=== PATIENT | female | born 1965 | race Caucasian/White ===

== ENCOUNTER 2017-03-14 19:11 | Emergency (ER) | payer OTHER ==
[2017-03-14] MEDS ORDERED: ADACEL TDaP IM ONE ×2 (19:21→19:22)
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
[2017-03-14 19:28] VITALS: BMI 34.4
[2017-03-14] MEDS ORDERED: ZOFRAN INJ 4 MG VIAL IVP ONE (19:40)
[2017-03-14] MEDS ORDERED: MORPHINE SULFATE INJ 4 MG IVP ONE (19:40)
[2017-03-14] MEDS ORDERED: ZOFRAN INJ 4 MG VIAL ONE (19:41)
[2017-03-14] MEDS ORDERED: MORPHINE SULFATE INJ 4 MG ONE (19:41)
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
[2017-03-14] MEDS ORDERED: FLEXERIL TAB 10 MG PO ONE (20:42)
[2017-03-14] MEDS ORDERED: NORCO 10/325 TAB PO ONE (20:42)
[2017-03-14] MEDS ORDERED: MOTRIN TAB 800 MG PO ONE ×2 (20:43→20:44)
[2017-03-14] MEDS ORDERED: FLEXERIL TAB 10 MG ONE (20:44)
[2017-03-14] MEDS ORDERED: NORCO 10/325 TAB ONE (20:45)
[2017-03-14 21:32] VITALS: BP 119/62
== END 2017-03-14 21:35 | disposition home or self-care (01) ==
LOC: ER 19:11
PROC: 2W3MX1Z Immobilization of Left Lower Extremity using Splint (ICD-10-PCS; principal; 2017-03-14)
DX: S82.62XA Displaced fracture of lateral malleolus of left fibula, initial encounter for closed fracture (principal); S80.02XA Contusion of left knee, initial encounter; V03.10XA Pedestrian on foot injured in collision with car, pick-up truck or van in traffic accident, initial encounter; Y92.481 Parking lot as the place of occurrence of the external cause
CPT/HCPCS: 29515; 73560; 73610; 90471; 96365; 96374; 96375; 99282; 99283; J2270; J2405